=== PATIENT | female | born 1945 | race Hispanic/Latino ===

== ENCOUNTER 2017-09-23 11:16 | Day surgery (SDC) | payer MEDICARE, BC, OTHER ==
[2017-09-19 14:12] VITALS: BMI 18.5
[2017-09-23 11:58] VITALS: TEMP 98.5
[2017-09-23 12:04] LABS: BLOOD UREA NITROGEN 14 mg/dL (7-21); CALCIUM 9.8 mg/dL (8.4-10.5); GFR AFRICAN-AMERICAN > 60; GFR NON-AFRICAN AMERICAN > 60
[2017-09-23 12:12] LABS: BASO # 0.03 K/mm3 (0.0-2.0); BASO % 0.4 % (0.0-3.0); EOS # 0.3 (0.0-0.7); EOS % 4.2 % (1.5-5.0); GRAN # 5.04 (1.4-6.5); GRAN % 65.4 % (50.0-68.0); HEMOGLOBIN 13.3 g/dL (12.0-16.0); LYMPH # 1.8 (1.2-3.4); LYMPH % 22.8 % (22.0-35.0); MEAN CELL VOLUME 86.1 fl (80.0-105.0); MEAN CORPUSCULAR HEMOGLOBIN 29.3 pg (25.0-35.0); MEAN PLATELET VOLUME 10.6 fl (7.0-11.0); MONO # 0.6 (0.1-0.6); MONO % 7.2 % (1.0-6.0); PARTIAL THROMBOPLASTIN TIME 29.3 Seconds (25.1-36.5); RBC 4.54 10^6/uL (3.5-6.1); RED CELL DISTRIBUTION WIDTH 18.4 % (11.5-14.5); WHITE BLOOD COUNT 7.7 10^3/ul (4.5-11.0)
[2017-09-23 12:21] LABS: INR 0.87
[2017-09-23] MEDS ORDERED: Midazolam 2 MG/2 ML VIAL ONE ×2 (13:50→14:01)
[2017-09-23] MEDS ORDERED: Midazolam 2 MG/2 ML VIAL IVP ONE (13:55)
[2017-09-23] MEDS ORDERED: Oxycodone/Acetaminophen 5/325 mg Tab PO PRN (14:25)
[2017-09-23] MEDS ORDERED: Sodium Chloride 0.45% 1,000 ML IV SCH (14:30)
[2017-09-23 15:26] VITALS: RESP 16
[2017-09-23] MEDS ORDERED: Oxycodone/Acetaminophen 5/325 mg Tab ONE (15:30)
--- NOTE | 2017-09-23 16:02 | RAD ---
Date of service: 09/23/2017 HISTORY: RLL lung bx COMPARISON: 12/15/2014 FINDINGS: LUNGS: Patchy infiltrate right lower lobe. No pneumothorax PLEURA: No significant pleural effusion identified, no pneumothorax apparent. CARDIOVASCULAR: Normal. OSSEOUS STRUCTURES: No significant abnormalities. VISUALIZED UPPER ABDOMEN: Normal. OTHER FINDINGS: None. IMPRESSION: Patchy infiltrate right lower lobe. No pneumothorax
--- NOTE | 2017-09-23 17:31 | CT ---
PROCEDURE: CT guided right lower lobe lung biopsy. HISTORY: Heavy smoker. Small right lower lobe nodule which is increased in size. Evaluate for malignancy. PHYSICIAN(S): Richar Monreal MD. TECHNIQUE: The relative risks and indications of the procedure were explained to the patient and her and consent obtained. The patient was placed left decubitus position on the CT scanner and preliminary images through the mid lungs obtained. Conscious sedation and monitoring were provided throughout the procedure by a nurse. There is a 10 mm peripheral nodule in the right lower lobe laterally.. A right lateral approach was selected and the area prepped and draped in the usual sterile fashion. 1% Xylocaine was used to anesthetize the skin and soft tissues. A 18 gauge guiding needle was advanced into the 10 mm right lower lobe nodule. Its position was confirmed with CT. Using coaxial technique, multiple core biopsies were obtained. The postprocedure images show no evidence of pneumothorax and a small amount of hemorrhage. The patient was hemodynamically stable.. IMPRESSION: 1. CT-guided right lower lobe lung biopsy as described above.
[2017-09-23 17:57] VITALS: BP 148/74; PULSE 80; O2SAT 97
== END 2017-09-23 17:45 | disposition home or self-care (01) ==
LOC: SDS 11:16
PROVIDERS: ATTEND Radiology Vascular & Interventional Radiology
DX: C34.31 Malignant neoplasm of lower lobe, right bronchus or lung (principal); F17.210 Nicotine dependence, cigarettes, uncomplicated
CPT/HCPCS: 32405; 36415; 71045; 77012; 80048; 85025; 85610; 85730; 88305; J2250; J2405; J3010; J7030